=== PATIENT | female | born 1980 | race Caucasian/White ===

== ENCOUNTER 2022-10-31 12:41 | Day surgery (SDC) | payer OTHER ==
[~2022-10-31 12:41] MED LIST: Iopamidol-M 300 61% 15 ML VIAL ONE
== END 2022-10-31 15:30 | disposition home or self-care (01) ==
LOC: CSHRAD 12:41
PROVIDERS: ATTEND Neurological Surgery
DX: G96.00 Cerebrospinal fluid leak, unspecified (principal); R51.9 Headache, unspecified; I10 Essential (primary) hypertension; J45.909 Unspecified asthma, uncomplicated; F17.200 Nicotine dependence, unspecified, uncomplicated; Z79.899 Other long term (current) drug therapy; Z79.82 Long term (current) use of aspirin; Z90.89 Acquired absence of other organs
CPT/HCPCS: 62305; 72126; 72129; 72132; Q9967